=== PATIENT | male | born 1955 | race Caucasian/White ===

== ENCOUNTER 2018-08-07 15:01 | Inpatient (IN) | payer OTHER ==
[~2018-08-07] VITALS: Ht 165.1 cm; Wt 89.9 kg
--- NOTE | ~2018-08-07 | EKG ---
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: : 1955 Requested By: Jd Calvin Order Number: [id number] MD: Harvinder Boss Measurements Intervals [place] Rate: 82 P: [place]: QRS: -46 QRSD: 95 T: 89 QT: 435 QTc: 508 Interpretive Statements Atrial fibrillation Ventricular premature complex Left anterior hemiblock Anteroseptal infarct, age indeterminate Prolonged QT interval Compared to ECG 04/14/2001 22:52:00 Heart rate has slowed Electronically Signed On 08-08-2018 8:24:36 ACID LOADER by Harvinder Boss [email or web address] <ELECTRONICALLY SIGNED> By: Harvinder Boss MD, FAC 08/08/18 0824 0716 5 Harvinder Boss MD, [facility] /EPI
--- NOTE | ~2018-08-07 | CATHLAB ---
[facility] [address] [place] [address] INVASIVE PROCEDURE REPORT Name: JADE BLAND Room #: 209-P ADM IN M.R.#: [id number] Admission: 08/07/18 Attend Phys: Jd Calvin MD Discharge: Date of : 51 Date of Service: 08/10/18 1449 Report #: [id number] THIS REPORT FOR: //name// APPROVED REPORT Study performed: 08/09/2018 07:28:42 Patient Details Patient Status: In-Patient Room #: 209 The patient is a 63 year-old male Event Personnel Casimiro Salmon Inspection Engineer, Diana Sanchez RTR, Daniel Mcallister Mahmood, Amber Monitor, Anshul Murdock RN residential appraiser Performed Art Access - R femoral artery* Kael Access - R femoral vein Right and Left Heart Cath w/or w/o Coronarie [id number] [facility] 16263 Initial Mod Sed Same Phys/QHP Gr5y [id number] 69213 Mod Sed Same Phys/QHP Ea 449325 Hemostasis w/ Mynx Abdominal Aortography 570227 Indication Dyspnea Procedure Narrative The Right Groin^ was infiltrated with 1% Lidocaine subcutaneous anesthesia. A PINNACLE 6FR Sheath #[id number] sheath was inserted into the RFA. Coronary angiography was performed using coronary diagnostic catheters. The right coronary system was accessed and visualized with a JR4 catheter. The left coronary system was accessed and visualized with a JL4 catheter. The left ventricle was accessed and visualized with a PIGTAIL catheter. Left ventriculogram was performed in 30 degree projection. An aortogram of the abdominal aorta was performed. Pre-demployment femoral angiogram was performed . Closure device was deployed with a 6 Fr MYNXGRIP 6/7F #[id number]. Hemostasis was obtained with manual pressure following sheath removal without any complications. The patient tolerated the procedure well and there were no complications associated with the procedure. There was no hematoma. Intraoperative Conscious Sedation Sedation start time: 08:18 Case end Time: 08:[address] [address] INVASIVE PROCEDURE REPORT Name: LLOYD BLANDUL [facility] Room #: 209-P [facility] IN [facility].#: [id number] Admission: 08/07/18 Attend Phys: Jd Calvin MD Discharge: Date of : 51 Date of Service: 08/10/18 1449 Report #: [id number] Fentanyl 50 mcg Versed 1 mg Fluoro Time: 3.40 minutes Dose: DAP 4246.00 cGycm2 407 mGy Contrast Type and Amount: Omnipaque 105 ml Hemodynamics The right atrial mean pressure is 24 mmHg. The right ventricular pressure is 57/18 mmHg. The pulmonary artery pressure is 59/37 mmHg with a mean of 44 mmHg. The mean pulmonary capillary wedge pressure is 33 mmHg. The aortic pressure is 112/78 mmHg with a mean of 91 mmHg. The left ventricular pressure is 112/18 mmHg with a mean of mmHg. The left ventricular end diastolic pressure is 34 mmHg. The cardiac output using thermo method is 2.17 L/min. The cardiac index using thermo method is 1.13 L/min/m2. Conclusion #1 successful right heart catheterization with markedly increased pulmonary pressures end point pulmonary capillary wedge pressure. See above hemodynamics. #2 moderate left ventricular dilatation with severe global hypokinesis and 2-3+ mitral regurg EF 15-20% #3 abdominal aortogram showing no evidence of aneurysm slow flow is noted #4 coronary anatomy reveals wide patency and a left dominant system. No occlusive coronary artery disease is noted. Recommendations and plan: Aggressive diuresis afterload reduction will continue. 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 Transfer to CCU in guarded but improving condition. <ELECTRONICALLY SIGNED> By: Casimiro Salmon MD, FACC 08/10/18 1449 1449 1449 Casimiro Salmon MD, FACC /INF
--- NOTE | ~2018-08-07 | 2DMMODE ---
[facility] [address] [place] [address] 2 D/M-MODE ECHOCARDIOGRAM Name: JADE BLAND Room #: 209-P ADM IN M.R.#: [id number] Admission: 08/07/18 Attend Phys: Jd Calvin MD Discharge: Date of : 51 Date of Service: 08/08/18 1231 Report #: [id number] THIS REPORT FOR: //name// APPROVED REPORT Study performed: 08/08/2018 11:01:37 EXAM: Comprehensive 2D, Doppler, and color-flow Echocardiogram Patient Location: In-Patient Room #: 209 Status: routine BSA: 1.92 HR: 88 bpm BP: 94/59 mmHg Rhythm: Atrial Fibrillation with PVC's Other Information Study Quality: Adequate Indications Afib with RVR 2D Dimensions RVDd: 30.90 mm IVSd: 6.09 (7-11mm) LVOT Diam: 21.77 (18-24mm) LVDd: 59.13 mm PWd: 9.01 (7-11mm) Ascending Ao: 39.88 (22-36mm) LVDs: 51.10 (25-40mm) Aortic Root: 32.30 mm IVC: 22.00 mm Volumes Left Atrial Volume (Systole) Single Plane 4CH: 53.78 mL Single Plane 2CH: 41.58 mL LA ESV Index: 27.00 mL/m2 Aortic Valve AoV Peak Ambrosio.: 1.66 m/s AO Peak Gr.: 13.88 mmHg LVOT Max P.02 mmHg LVOT Max V: 0.50 m/s HERNANDO Vmax: 1.12 cm2 Mitral Valve MV Decel. Time: 145.59 ms MV E Max Ambrosio.: 1.07 m/s [facility] [place] [address] [place] [address] 2 D/M-MODE ECHOCARDIOGRAM Name: DEVIN BLAND [facility] Room #: 209-[facility] IN ..#: [id number] Admission: 08/07/18 Attend Phys: Jd Calvin MD Discharge: Date of : 51 Date of Service: 08/08/18 1231 Report #: [id number] Pulmonary Valve PV Peak Ambrosio.: 0.71 m/s PV Peak Gr.: 2.09 mmHg Tricuspid Valve TR Peak Ambrosio.: 2.92 m/s RAP Estimate: 15.00 mmHg TR Peak Gr.: 34.01 mmHg PA Pressure: 49.00 mmHg Left Ventricle Left ventricle is dilated. There is normal left ventricular wall thickness. Left ventricular ejection fraction is severely decreased. LVEF is 20%.global This study is not technically sufficient to allow evaluation of the LV diastolic function due to atrial fibrillation. Right Ventricle The right ventricle is normal size. Right ventricle is hypokinetic. Atria The left atrium size is normal. Right atrium is mildly dilated. Aortic Valve Aortic valve is mildly calcified and possibly bicuspid. Trace aortic regurgitation. There is no aortic valvular stenosis. Mitral Valve The mitral valve is normal in structure. Mild mitral regurgitation. No evidence of mitral valve stenosis. Tricuspid Valve The tricuspid valve is normal in structure. Mild tricuspid regurgitation. PAP is estimated at 44-49 mmHg. Pulmonic Valve Pulmonic valve is not well visualized. Trace to mild pulmonic regurgitation. Great Vessels The aortic root is normal in size. IVC is borderline dilated and collapses <50% with inspiration. Pericardium There is no pericardial effusion. [facility] [address] [place] [address] 2 D/M-MODE ECHOCARDIOGRAM Name: JADE BLAND Room #: 209-P ADM IN M.R.#: [id number] Admission: 08/07/18 Attend Phys: Jd Calvin MD Discharge: Date of : 51 Date of Service: 08/08/18 1231 Report #: [id number] <Conclusion> Left ventricle is dilated. Left ventricular ejection fraction is severely decreased. LVEF is 20%.global This study is not technically sufficient to allow evaluation of the LV diastolic function due to atrial fibrillation. Right ventricle is hypokinetic. Right atrium is mildly dilated. Aortic valve is mildly calcified and possibly bicuspid. There is no aortic valvular stenosis. Mild mitral regurgitation. Mild tricuspid regurgitation. PAP is estimated at 44-49 mmHg. Trace to mild pulmonic regurgitation. The aortic root is normal in size. There is no pericardial effusion. <ELECTRONICALLY SIGNED> By: Casimiro Slamon MD, FACC 08/08/18 1231 1231 1231 Casimiro Salmon MD, FACC /INF
--- NOTE | ~2018-08-07 | EKG ---
[address] [place] [address] ELECTROCARDIOGRAM REPORT Name: DEVIN BLAND SANDEEP Room #: 209-P ADM IN M.R.#: [id number] Admission: 08/07/18 Attend Phys: Jd Calvin MD Discharge: Date of : 51 Report #: [id number] THIS REPORT FOR: //name// [facility] ED Test Date: 2018-08-07 Test Time: 15:16:58 Pat Name: DEVIN BLAND Department: Room: 209 Gender: M Tripper: SHAYNE : 1955 Requested By: Ranjan Le Order Number: [id number] MD: Harvinder Boss Measurements Intervals [place] Rate: 140 P: [place]: QRS: -41 QRSD: 99 T: 107 QT: 341 QTc: 521 Interpretive Statements Atrial fibrillation Paired ventricular premature complexes Left anterior fascicular block Nonspecific ST and T wave abnormality Prolonged QT interval Compared to ECG 04/14/2001 22:52:00 Ventricular premature complex(es) now present Left anterior fascicular block now present Atrial fibrillation has replaced sinus rhythm Electronically Signed On 08-08-2018 8:17:14 MILLING/POLISHING OPERATOR by Harvinder Boss [email or web address] <ELECTRONICALLY SIGNED> By: Harvinder Boss MD, FAC 08/08/18 0817 1516 1516 Harvinder Boss MD, FAC /EPI
[2018-08-07 15:03] VITALS: BP 119/94
[2018-08-07 15:38] LABS: ABSOLUTE NEUTROPHILS 4.2 thou/uL (1.4-8.2); BASOPHILS 0.7 % (0.0-2.0); HEMATOCRIT 44.6 % (42.0-52.0); HEMOGLOBIN 15.1 gm/dL (14.0-18.0); LYMPHOCYTES 28.9 % (24.0-44.0); MCH 33.1 pg (26.0-34.0); MCHC 33.8 g/dL (28.0-37.0); MCV 97.9 fL (80.0-100.0); MONOCYTES 9.6 % (1.0-8.0); PLATELET COUNT 205 thou/uL (150-400); POLYS 59.8 % (36.0-66.0); RBC 4.55 mil/uL (4.50-6.00); RDW 14.5 % (10.5-14.5)
[2018-08-07 15:50] LABS: CALCIUM 9.1 mg/dL (8.5-10.1); CREATININE 1.2 mg/dL (0.7-1.3); POTASSIUM 3.7 mmol/L (3.5-5.1)
[2018-08-07 17:06] LABS: AMP/METHAMP Negative (Negative); BARBITURATES Negative (Negative); BENZODIAZEPINES Negative (Negative); COCAINE Negative (Negative); METHADONE Negative (Negative); OPIATES Negative (Negative); PCP Negative (Negative)
[2018-08-07 17:18] VITALS: BP 120/99
[2018-08-07 18:52] VITALS: BP 107/78
[2018-08-07 22:45] VITALS: BP 104/74
[2018-08-08 03:55] LABS: ANION GAP 7 mmol/L (7-16); BUN 19 mg/dL (7-18); CALCIUM 8.3 mg/dL (8.5-10.1); CHLORIDE 105 mmol/L (98-107); CHOLESTEROL 98 mg/dL (<200); CO2 28 mmol/L (21-32); CREATININE 1.2 mg/dL (0.7-1.3); GLUCOSE 103 mg/dL (74-106); HDL CHOLESTEROL 23 mg/dL (>40); LDL CHOLESTEROL 67 mg/dL (<100); MAGNESIUM 1.7 mg/dL (1.8-2.4); SODIUM 140 mmol/L (136-145); TC:HDL 4.3 Ratio (Not establshd); TRIGLYCERIDE 40 mg/dL (<150); TROPONIN-I <0.06 ng/mL (<0.06); VLDL 8 mg/dL (<40)
[2018-08-08 03:56] LABS: SERUM ASSESSMENT Clear
[2018-08-08 03:57] VITALS: BP 94/59
[2018-08-08 12:08] VITALS: BP 113/81
[2018-08-08 12:35] VITALS: BP 108/91
[2018-08-08 19:21] VITALS: BP 105/70
[2018-08-09] VITALS (11 sets, daily range): BP systolic 80–113; BP diastolic 52–82
[2018-08-09 03:39] LABS: CALCIUM 9.1 mg/dL (8.5-10.1); CREATININE 1.1 mg/dL (0.7-1.3); POTASSIUM 3.8 mmol/L (3.5-5.1)
[2018-08-09 14:08] LABS: CALCIUM 9.2 mg/dL (8.5-10.1); CREATININE 1.2 mg/dL (0.7-1.3); POTASSIUM 3.8 mmol/L (3.5-5.1)
[2018-08-10 04:14] LABS: CALCIUM 9.2 mg/dL (8.5-10.1); CREATININE 1.3 mg/dL (0.7-1.3); POTASSIUM 3.6 mmol/L (3.5-5.1)
[2018-08-10 05:04] VITALS: BP 93/67
[2018-08-10 07:55] VITALS: BP 104/73
[2018-08-10] MEDS ORDERED: DEMADEX20 MG PO (09:19)
[2018-08-10] MEDS ORDERED: COZAAR 25 MG TA25 M1 PO (09:19)
[2018-08-10] MEDS ORDERED: COREG6.25 MG PO (09:19)
[2018-08-10] MEDS ORDERED: SPIRONOLACTONE25 M1 PO (09:19)
[2018-08-10] MEDS ORDERED: XARELTO20 MG PO (09:20)
[2018-08-10] MEDS ORDERED: ASPIR 8181 MG PO (09:20)
[2018-08-10] MEDS ORDERED: ATORVASTATIN CA40 MG PO (09:20)
[2018-08-10 11:50] VITALS: BP 89/63
[2018-08-10 13:44] VITALS: BP 89/63
== END 2018-08-10 14:30 | disposition home or self-care (01) | DRG 286 ==
LOC: ER 15:01 → 2N 16:54 → EROBS 16:54 → 2N 18:48
PROVIDERS: Internal Medicine; Internal Medicine Cardiovascular Disease; Nurse Practitioner Adult Health; Physician Assistant
DX: I25.10 Atherosclerotic heart disease of native coronary artery without angina pectoris (principal); I50.21 Acute systolic (congestive) heart failure; G93.49 Other encephalopathy; I48.91 Unspecified atrial fibrillation; E83.42 Hypomagnesemia; I42.8 Other cardiomyopathies; Z79.01 Long term (current) use of anticoagulants; Z79.82 Long term (current) use of aspirin; Z79.899 Other long term (current) drug therapy; Z83.3 Family history of diabetes mellitus; Z23 Encounter for immunization
CPT/HCPCS: 10081

== ENCOUNTER → 2019-01-10 | Outpatient (CLI) | payer OTHER ==
[~2019-01-10] MED LIST: ASPIR 8181 MG PO; ATORVASTATIN CA40 MG PO; COREG6.25 MG PO; COZAAR 25 MG TA25 M1 PO; DEMADEX20 MG PO; SPIRONOLACTONE25 M1 PO; XARELTO20 MG PO
--- NOTE | 2019-01-10 09:20 | 2DMMODE ---
[facility] [address] [place] [address] 2 D/M-MODE ECHOCARDIOGRAM Name: FERNANDO BLANDSIRI Room #: REG [facility]#: [id number] ������������� Admission: 01/10/19 ������������� Attend Phys: Ilana Bojorquez Discharge: ��� ������������� ��� Date of : 51 Date of Service: 01/10/19 0920 �� Report #: [id number] �������� ��������������������������������������������[id number] THIS REPORT FOR: //name// APPROVED REPORT Study performed: 01/10/2019 08:43:44 EXAM: Comprehensive 2D, Doppler, and color-flow Echocardiogram Patient Location: Out-Patient Room #: Echo lab 2 Status: routine BSA: 1.98 HR: 54 bpm BP: 120/76 mmHg Rhythm: Bradycardia Other Information Study Quality: Good Indications Congestive Heart Failure Hypertension/HDD 2D Dimensions RVDd: 33.50 mm IVSd: 9.05 (7-11mm) LVOT Diam: 20.09 (18-24mm) LVDd: 62.98 mm PWd: 10.91 (7-11mm) Ascending Ao: 29.87 (22-36mm) LVDs: 53.40 (25-40mm) Aortic Root: 30.49 mm IVC: 14.00 mm Volumes Left Atrial Volume (Systole) Single Plane 4CH: 42.89 mL Single Plane 2CH: 57.65 mL LA ESV Index: 27.00 mL/m2 Aortic Valve AoV Peak Ambrosio.: 2.00 m/s AO Peak Gr.: 16.01 mmHg LVOT Max P.64 mmHg AO Mean Gr.: 9.17 mmHg LVOT Mean P.91 mmHg AO V2 Mean: 1.42 m/s LVOT Max V: 1.07 m/s AO V2 VTI: 46.62 cm LVOT Mean V: 0.78 m/s HERNANDO (VTI): 1.76 cm2 LVOT V1 VTI: 25.85 cm HERNANDO Vmax: 1.69 cm2 SV (LVOT): 81.88 mL [facility] [address] [place] [place] [address] 2 D/M-MODE ECHOCARDIOGRAM Name: DEVIN BLAND [facility] Room #: REG [facility]#: [id number] ������������� Admission: 01/10/19 ������������� Attend Phys: Ilana Bojorquez Discharge: ��� ������������� ��� Date of : 51 Date of Service: 01/10/19 0920 �� Report #: [id number] �������� ��������������������������������������������[id number] Mitral Valve E/A Ratio: 1.1 MV Decel. Time: 237.25 ms MV E Max Ambrosio.: 0.78 m/s MV A Ambrosio.: 0.73 m/s MV PHT: 68.80 ms IVRT: 143.02 ms Pulmonary Valve PV Peak Ambrosio.: 0.99 m/s PV Peak Gr.: 3.95 mmHg Pulmonary Vein P Vein S: 0.58 m/s P Vein A: 0.27 m/s P Vein D: 0.58 m/s P Vein A Dur.: 129.2 msec P Vein S/D Ratio: 1.00 Tricuspid Valve TR Peak Ambrosio.: 2.33 m/s TR Peak Gr.: 21.80 mmHg PA Pressure: 27.00 mmHg Left Ventricle Left ventricle is dilated. There is global hypokinesis of the left ventricle. There is normal left ventricular wall thickness. Left ventricular ejection fraction is moderately decreased. LVEF is 35%. The left ventricular diastolic function is normal. Right Ventricle The right ventricle is normal size. The right ventricular systolic function is normal. Atria The left atrium size is normal. Right atrium is at the upper limits of normal. Aortic Valve The aortic valve is normal in structure. Aortic valve is calcified. No aortic regurgitation is present. Mild aortic stenosis. Mitral Valve The mitral valve is normal in structure. Trace to mild mitral regurgitation. No evidence of mitral valve stenosis. Tricuspid Valve The tricuspid valve is normal in structure. There is trace to mild [address] [place] [address] 2 D/M-MODE ECHOCARDIOGRAM Name: [facility] Room #: REG [facility]#: [id number] ������������� Admission: 01/10/19 ������������� Attend Phys: Ilana Bojorquez Discharge: ��� ������������� ��� Date of : 51 Date of Service: 01/10/19 0920 �� Report #: [id number] �������� ��������������������������������������������[id number] tricuspid regurgitation. Estimated PAP 27 mmHg. There is no pulmonary hypertension. Pulmonic Valve The pulmonary valve is normal in structure. There is no pulmonic valvular regurgitation. Great Vessels The aortic root is normal in size. IVC is normal in size and collapses >50% with inspiration. Pericardium There is no pericardial effusion. <Conclusion> Left ventricle is dilated. Left ventricular ejection fraction is moderately decreased. LVEF is 35%. The right ventricle is normal size. Right atrium is at the upper limits of normal. The aortic valve is normal in structure. Aortic valve is calcified. Mild aortic stenosis. Trace to mild mitral regurgitation. There is trace to mild tricuspid regurgitation. Estimated PAP 27 mmHg. There is no pulmonary hypertension. The aortic root is normal in size. There is no pericardial effusion. ��������������������������������������������� <ELECTRONICALLY SIGNED> ���������������������������������������� By: Casimiro Salmon MD, FACC ��������������������������������������������� 01/10/19919 9 9 Casimiro Salmon MD, FACC /INF
[2019-01-10 09:38] LABS: HEMATOCRIT 41.3 % (42.0-52.0); HEMOGLOBIN 14.3 gm/dL (14.0-18.0); MCH 36.1 pg (26.0-34.0); MCHC 34.6 g/dL (28.0-37.0); MCV 104.3 fL (80.0-100.0); RBC 3.96 mil/uL (4.50-6.00); RDW 13.4 % (10.5-14.5); WBC 8.4 thou/uL (4.0-11.0)
[2019-01-10 09:57] LABS: ALBUMIN 3.7 g/dL (3.4-5.0); ANION GAP 8 mmol/L (7-16); BUN 23 mg/dL (7-18); CALCIUM 9.1 mg/dL (8.5-10.1); CHLORIDE 104 mmol/L (98-107); CHOLESTEROL 155 mg/dL (<200); CO2 28 mmol/L (21-32); CREATININE 1.2 mg/dL (0.7-1.3); GLUCOSE 112 mg/dL (74-106); HDL CHOLESTEROL 36 mg/dL (>40); LDL CHOLESTEROL 103 mg/dL (<100); MAGNESIUM 1.9 mg/dL (1.8-2.4); POTASSIUM 4.6 mmol/L (3.5-5.1); SGOT 30 U/L (15-37); SGPT 47 U/L (30-65); SODIUM 140 mmol/L (136-145); TC:HDL 4.3 Ratio (Not establshd); TOTAL BILIRUBIN 0.5 mg/dL (<0.1-1.0); TOTAL PROTEIN 7.7 g/dL (6.4-8.2); TRIGLYCERIDE 82 mg/dL (<150); VLDL 16 mg/dL (<40)
[2019-01-11 00:07] LABS: GLYCOHEMOGLOBIN (HGB A1C) 5.3 % (4.8-5.6)
[2019-01-12 08:06] LABS: FREE TESTOSTERONE 4.6 pg/mL (6.6-18.1)
== END ==
LOC: CV 08:27
PROVIDERS: Internal Medicine
DX: I08.3 Combined rheumatic disorders of mitral, aortic and tricuspid valves (principal); I11.0 Hypertensive heart disease with heart failure; I50.22 Chronic systolic (congestive) heart failure; Z79.899 Other long term (current) drug therapy

== ENCOUNTER 2020-04-01 09:56 | Emergency (ER) | payer OTHER ==
[~2020-04-01] VITALS: Ht 182.9 cm; Wt 68.0 kg
[2020-04-01 10:42] LABS: ABSOLUTE NEUTROPHILS 4.3 thou/uL (1.4-8.2); BASOPHILS 0.5 % (0.0-2.0); EOSINOPHILS 0.1 % (0.0-3.0); HEMATOCRIT 45.2 % (42.0-52.0); HEMOGLOBIN 15.8 gm/dL (14.0-18.0); LYMPHOCYTES 16.8 % (24.0-44.0); MCH 34.2 pg (26.0-34.0); MCHC 34.9 g/dL (28.0-37.0); MONOCYTES 7.7 % (1.0-8.0); PLATELET COUNT 153 thou/uL (150-400); POLYS 74.9 % (36.0-66.0); RBC 4.61 mil/uL (4.50-6.00); RDW 13.6 % (10.5-14.5); WBC 5.8 thou/uL (4.0-11.0)
[2020-04-01 11:06] LABS: ANION GAP 8 mmol/L (7-16); BUN 16 mg/dL (7-18); CALCIUM 8.5 mg/dL (8.5-10.1); CHLORIDE 100 mmol/L (98-107); CO2 26 mmol/L (21-32); CREATININE 1.1 mg/dL (0.7-1.3); GLUCOSE 152 mg/dL (74-106); POTASSIUM 3.8 mmol/L (3.5-5.1); SODIUM 134 mmol/L (136-145)
[2020-04-01 11:16] LABS: ALBUMIN 3.5 g/dL (3.4-5.0); LIPASE 281 U/L (73-393); SGOT 102 U/L (15-37); SGPT 61 U/L (30-65); TOTAL BILIRUBIN 0.9 mg/dL (0.2-1.0); TOTAL PROTEIN 8.1 g/dL (6.4-8.2); TROPONIN-I <0.06 ng/mL (<0.06)
[2020-04-01 11:21] LABS: URINE BILIRUBIN NEGATIVE (Negative); URINE BLOOD 2+ (Negative); URINE CLARITY CLEAR; URINE COLOR YELLOW; URINE GLUCOSE-RANDOM* NEGATIVE (Negative); URINE KETONES NEGATIVE (Negative); URINE LEUKOCYTES-REFLEX NEGATIVE (Negative); URINE NITRITE-REFLEX NEGATIVE (Negative); URINE PROTEIN (DIPSTICK) 1+ (Negative); URINE SPECIFIC GRAVITY >= 1.030 (1.005-1.035); URINE UROBILINOGEN 0.2 E.U./dl (0.2-1.0)
[2020-04-01 11:43] LABS: BACTERIA-REFLEX 1-9 Few /HPF (None Seen); CASTS None Seen /LPF (None Seen); CRYSTALS None Seen /LPF (None Seen); MUCUS 4-6 Moderate strn/LPF (None Seen); SQUAMOUS 4-10 Moderate /LPF (0-3); URINE RBC 0-2 Rare /HPF (0-2); URINE WBC-REFLEX 0-5 Rare /HPF (0-5)
[2020-04-01] MEDS ORDERED: PACERONE 200 M200 M1 PO (12:20)
[2020-04-01] MEDS ORDERED: ZOFRAN ODT4 MG PO (12:35)
[2020-04-01 13:07] VITALS: BP 113/65
--- NOTE | 2020-04-01 13:25 | EKG ---
[facility] [address] [place] [address] ELECTROCARDIOGRAM REPORT Name: JADE BLAND Room #: [facility].#: [id number] Admission: 04/01/20 Attend Phys: Discharge: 04/01/20 Date of : 51 Report #: [id number] THIS REPORT FOR: cc: Ilana Bojorquez MD, Muhammed K. MD Couchonnal, Luis F. MD ~ THIS REPORT FOR: //name// [facility] ED Test Date: 2020-04-01 Test Time: 10:19:19 Pat Name: DEVIN BLAND Department: Room: Gender: Systems Development Manager: : 1955 Requested By: Anibal Ling Order Number: [id number] : Florian Dewitt Measurements Intervals [place] Rate: 102 P: 34 NV: 165 QRS: -44 QRSD: 100 T: 48 QT: 347 QTc: 453 Interpretive Statements Sinus tachycardia Atrial premature complexes Left anterior fascicular block Abnormal R-wave progression, late transition Compared to ECG 08/08/2018 07:16:02 Electronically Signed On 04-01-2020 13:25:06 CDT by Florian Dewitt [email or web address] <ELECTRONICALLY SIGNED> By: Florian Dewitt MD 04/01/20 1325 1019 1019 Florian Dewitt MD /EPI
== END 2020-04-01 13:08 | disposition home or self-care (01) ==
LOC: ER 09:56
PROVIDERS: Emergency Medicine
DX: R11.2 Nausea with vomiting, unspecified (principal); R50.9 Fever, unspecified; K21.9 Gastro-esophageal reflux disease without esophagitis; Z79.82 Long term (current) use of aspirin; Z79.899 Other long term (current) drug therapy; Z20.828 Contact with and (suspected) exposure to other viral communicable diseases